=== PATIENT | female | born 1970 | race African-American/Black ===

== ENCOUNTER 2024-02-10 09:07 | Emergency (ER) | payer BC, OTHER ==
[2024-02-10 09:12] VITALS: BP 129/86; PULSE 74; RESP 18; TEMP 98; BMI 29.2
== END 2024-02-10 13:07 | disposition home or self-care (01) ==
LOC: JERFT 09:07
DX: R22.1 Localized swelling, mass and lump, neck (principal)
CPT/HCPCS: 76536-TC; 99284-25

== ENCOUNTER 2025-01-31 05:49 | Day surgery (SDC) | payer BC ==
[2025-01-25 17:09] VITALS: BMI 25.6
[2025-01-31] MEDS ORDERED: LIDOCAINE HCL 1%, 10 MG/ML (20ML VIAL) ONE (07:12)
[2025-01-31] MEDS ORDERED: BACITRACIN ZINC 15 GM TUBE TOPICAL OINTMENT ONE (07:12)
[2025-01-31] MEDS ORDERED: DEXAMETHASONE SOD PHOSPHATE 4 MG/1 ML VIAL ONE ×2 (07:12→07:45)
[2025-01-31] MEDS ORDERED: BUPIVACAINE HCL/PF 0.5% (5MG/ML) 10 ML VIAL ONE (07:12)
[2025-01-31] MEDS ORDERED: PROPOFOL 20 ML ONE (07:16)
[2025-01-31] MEDS ORDERED: MIDAZOLAM HCL 2 MG/2 ML SINGLE DOSE VIAL ONE (07:16)
[2025-01-31] MEDS ORDERED: LIDOCAINE HCL/PF 2% SDV 5ML VIAL ONE (07:16)
[2025-01-31] MEDS ORDERED: GENTAMICIN SO4 80 MG/2 ML VIAL ONE (07:27)
[2025-01-31] MEDS: ceFAZolin 2 GRAM PREMIX BAG IVPB ONE (07:45)
[2025-01-31] MEDS ORDERED: ceFAZolin SODIUM 1 GM VIAL ONE (07:45)
[2025-01-31] MEDS ORDERED: PROMETHAZINE HCL 25 MG/1 ML VIAL IVPB PRN (07:53)
[2025-01-31] MEDS ORDERED: oxyCODONE HCL 5 MG TABLET PO PRN ×2 (07:53)
[2025-01-31] MEDS ORDERED: ONDANSETRON 4 MG/2 ML VIAL IVPUSH PRN (07:53)
[2025-01-31] MEDS ORDERED: KETOROLAC TROMETHAMINE 30 MG/1 ML VIAL ONE (08:38)
[2025-01-31] MEDS ORDERED: ONDANSETRON 4 MG/2 ML VIAL ONE (08:38)
[2025-01-31] MEDS: BENZOIN 118 ML SPRAY.PUMP TP ONE (08:42)
[2025-01-31] MEDS: ACETAMINOPHEN INJECTION 100 ML ONE (09:37)
[2025-01-31] MEDS: ACETAMINOPHEN 1000 MG/100 ML BAG IVPB ONE (09:37)
[2025-01-31] MEDS: LACTATED RINGERS SOLUTION 1,000 ML IV SCH (10:00)
[2025-01-31 11:01] VITALS: RESP 20
[2025-01-31 13:01] VITALS: BP 106/60; PULSE 70; TEMP 98
== END 2025-01-31 14:14 | disposition home or self-care (01) ==
LOC: JASU-SURG 05:49
PROVIDERS: ATTEND Podiatrist
PROC: 0QSN04Z Reposition Right Metatarsal with Internal Fixation Device, Open Approach (ICD-10-PCS; principal; 2025-01-31 07:30)
PROC: 0QBQ0ZZ Excision of Right Toe Phalanx, Open Approach (ICD-10-PCS; 2025-01-31 07:30)
DX: M21.612 Bunion of left foot (principal); M25.774 Osteophyte, right foot
CPT/HCPCS: 73630-TC-RT-FY; 88305-TC; 88311-TC; 94760; C1713